=== PATIENT | female | born 1970 | race Caucasian/White ===

== ENCOUNTER 2021-04-12 13:41 | Emergency (ER) | payer OTHER ==
[2021-04-12] MEDS ORDERED: IBUPROFEN400 MG PO (15:05)
== END 2021-04-12 15:28 | disposition home or self-care (01) ==
LOC: ER1 13:41
DX: S80.01XA Contusion of right knee, initial encounter (principal); W19.XXXA Unspecified fall, initial encounter
CPT/HCPCS: 73564; 99283

== ENCOUNTER 2021-05-21 14:57 | Emergency (ER) | payer OTHER ==
[~2021-05-21 14:57] MED LIST: IBUPROFEN400 MG PO
[2021-05-21 15:22] LABS: HEMOGLOBIN 13.8 gm/dl (12.3-15.3); RED BLOOD COUNT 4.42 M/UL (4.00-5.10); WHITE BLOOD COUNT 7.2 K/UL (4.5-11.0)
[2021-05-21 15:48] LABS: BUN/CREATININE RATIO 17 (0-10)
[2021-05-21] MEDS ORDERED: IBUPROFEN800 MG PO (18:21)
[2021-05-21] MEDS ORDERED: CYCLOBENZAPRINE5 MG PO (18:21)
== END 2021-05-21 20:54 | disposition home or self-care (01) ==
LOC: ER1 14:57
PROVIDERS: Emergency Medicine
DX: S01.01XA Laceration without foreign body of scalp, initial encounter (principal); M54.2 Cervicalgia; M79.662 Pain in left lower leg; V49.40XA Driver injured in collision with unspecified motor vehicles in traffic accident, initial encounter; Y92.410 Unspecified street and highway as the place of occurrence of the external cause
CPT/HCPCS: 12002; 70450; 71045; 71260; 72125; 72170; 73590; 80053; 82803; 83605; 85025; 85610; 85730; 86850; 86900; 86901; 99284; G0480; J2270